=== PATIENT | male | born 1990 | race Hispanic/Latino ===

== ENCOUNTER 2023-03-24 02:29 | Emergency (ER) | payer BC, OTHER ==
[~2023-03-24] VITALS: Ht 175.3 cm; Wt 90.7 kg
[2023-03-24 03:10] VITALS: BP 131/68; PULSE 74; RESP 18; O2SAT 98
[2023-03-24] MEDS ORDERED: TETANUS/DIPHTHERIA TOXOID [ADULT] 0.5 ML VIAL IM ONE (03:30)
== END 2023-03-24 03:37 | disposition home or self-care (01) ==
LOC: EDH 02:29
DX: S01.81XA Laceration without foreign body of other part of head, initial encounter (principal); K21.9 Gastro-esophageal reflux disease without esophagitis; Z98.890 Other specified postprocedural states; W18.39XA Other fall on same level, initial encounter; Y93.89 Activity, other specified; Y92.89 Other specified places as the place of occurrence of the external cause; Y99.8 Other external cause status
CPT/HCPCS: 12013; 90471; 90714